=== PATIENT | male | born 1990 | race Caucasian/White ===

== ENCOUNTER 2017-08-14 13:00 | Emergency (ER) | payer SELFPAY ==
--- NOTE | 2017-08-14 13:38 | ER Document Report ---
HPI - HPI Patient complains to provider of: anitra chest wall pain Onset: Other - 2 months Onset/Duration: Persistent Pain Level: 4 Context: 26 yo male c/o bilateral chest wall pain for 2 months, worse with movement, and his infant son kicking the are. felt it yesterday and felt lump in right breast. Associated Symptoms: None Exacerbated by: Other - see above Relieved by: Denies - ROS ROS below otherwise negative: Yes Systems Reviewed and Negative: Yes All other systems reviewed and negative Past Medical History - General Information source: Patient - Social History Smoking Status: Never Smoker Frequency of alcohol use: None Drug Abuse: None Lives with: Family Family History: Reviewed & Not Pertinent - Medical History Medical History: Negative Surgical Hx: Negative Vertical Provider Document - CONSTITUTIONAL Agree With Documented VS: Yes Exam Limitations: No Limitations General Appearance: No Apparent Distress - INFECTION CONTROL TRAVEL OUTSIDE OF THE [place] IN LAST 30 DAYS: No - HEENT HEENT: Normocephalic - NECK Neck: Supple - RESPIRATORY Respiratory: Breath Sounds Normal, No Respiratory Distress Notes: tender right pectoral muscle, no breast mass. - CARDIOVASCULAR Cardiovascular: Regular Rate, Regular Rhythm - MUSCULOSKELETAL/EXTREMETIES Musculoskeletal/Extremeties: MAEW - NEURO Level of Consciousness: Awake - DERM Notes: no clavicular lymph nodes Course - Re-evaluation Re-evalutation: 08/14/17 14:48 Chest x-ray is negative I will refer the patient to a family practice provider for breast ultrasound and mammogram. - Vital Signs Vital signs: Temp Pulse Resp BP Pulse Ox 98.9 F 72 16 125/76 97 08/14/17 13:10 08/14/17 13:10 08/14/17 13:10 08/14/17 13:10 08/14/17 13:10 Discharge - Discharge Clinical Impression: right pectoral muscle tenderness Condition: Good Disposition: HOME, SELF-CARE Instructions: Anti-Inflammatory Medication ([facility]), Chest Wall Pain ([facility]), Family Physicians / Practices Additional Instructions: See family practice doctor for referral for a breast ultrasound and mammogram Return to the emergency room worsening of the symptoms Motrin for discomfort Prescriptions: Ibuprofen [Motrin 800 mg Tablet] 800 mg PO Q8HP PRN #30 tablet PRN Reason: Forms: Return to Work Referrals: [facility] NP [COMMUNITY BASED STAFF] - Follow up as needed
--- NOTE | 2017-08-14 14:32 | RADIOLOGY REPORT (SQ) ---
EXAM DESCRIPTION: CHEST 2 VIEWS COMPLETED DATE/TIME: 08/14/2017 2:12 pm REASON FOR STUDY: chest wall pain back pain COMPARISON: None. EXAM PARAMETERS: NUMBER OF VIEWS: two views TECHNIQUE: Digital Frontal and Lateral radiographic views of the chest acquired. RADIATION DOSE: NA LIMITATIONS: none FINDINGS: LUNGS AND PLEURA: No opacities, masses or pneumothorax. No pleural effusion. MEDIASTINUM AND HILAR STRUCTURES: No masses or contour abnormalities. HEART AND VASCULAR STRUCTURES: Heart normal size. No evidence for failure. BONES: No acute findings. HARDWARE: None in the chest. OTHER: No other significant finding. IMPRESSION: NO ACUTE RADIOGRAPHIC FINDING IN THE CHEST. TECHNICAL DOCUMENTATION: JOB ID: [id number] [employer]- All Rights Reserved Reading location - IP/workstation name: [email or web address]
[2017-08-14 15:12] VITALS: BP 124/78
== END 2017-08-14 15:10 | disposition home or self-care (01) ==
LOC: ER 13:00
DX: R07.89 Other chest pain (principal); M79.1 Myalgia
CPT/HCPCS: 71046; 99284

== ENCOUNTER 2017-10-13 20:01 | Emergency (ER) | payer SELFPAY ==
[2017-10-13 20:10] VITALS: BP 142/82
[2017-10-13] MEDS ORDERED: DEXAMETHASONE SOD PHOS INJ 10 MG/1 ML VIAL IM ONE (22:03)
--- NOTE | 2017-10-13 22:05 | ER Document Report ---
ED General - General Chief Complaint: Sore Throat Stated Complaint: SORE THROAT Time Seen by Provider: 10/13/17 21:35 TRAVEL OUTSIDE OF THE [place] IN LAST 30 DAYS: No - HPI Notes: 27-year-old male presents with sore throat. Proximal a week ago patient began having sore throat and then shortly after lost his voice. Got his voice back but now his throat is hurting again. Does not smoke. Just recently moved from [place]. He has had a dry nonproductive cough as well. No fever. Gradual onset, burning pain. Nonradiating. No other modifying factors, no other associated symptoms, no other provocative or palliative factors. - Related Data Allergies/Adverse Reactions: No Known Allergies Allergy (Verified 08/14/17 13:01) Past Medical History - Social History Smoking Status: Unknown if Ever Smoked Family History: Reviewed & Not Pertinent Patient has suicidal ideation: No Patient has homicidal ideation: No - Past Medical History Cardiac Medical History: Reports: None Renal/ Medical History: Denies: Hx Peritoneal Dialysis Review of Systems - Review of Systems Notes: Review of systems as in the history of present illness, otherwise negative x 10 systems. Physical Exam - Vital signs Vitals: Temp Pulse Resp BP Pulse Ox 98.6 F 68 18 142/82 H 96 10/13/17 20:08 10/13/17 20:08 10/13/17 20:08 10/13/17 20:08 10/13/17 20:08 - Notes Notes: General: Well developed . HEENT: Normocephalic, atraumatic. Pupils equal round reactive to light. No JVD. Moderate pharyngeal injection noted, no tonsillar purulence Chest: No trauma. Respiratory: Good air exchange, normal excursion. Cardiac: Regular rhythm. No murmurs or gallops. Abdomen: Soft, benign. Nondistended. Nontender. Back: No asymmetry or gross abnormality. Motor: Grossly normal power and tone. Neurologic: Alert, nonfocal. Cranial nerves II-12 are intact. Sensation intact. Vascular: Well perfused. Normal peripheral pulses. Skin: No petechiae or purpura. Course - Re-evaluation Re-evalutation: 10/13/17 22:33 Well-appearing male with the after mentioned symptoms. Likely viral in nature. No high-risk features, doubt streptococcal pharyngitis. Of note, rapid strep screen ordered by [facility] physician was negative. We will treat the patient symptomatically with a single dose of steroids, outpatient NSAIDs, outpatient follow-up. - Vital Signs Vital signs: Temp Pulse Resp BP Pulse Ox 98.6 F 68 18 142/82 H 96 10/13/17 20:08 10/13/17 20:08 10/13/17 20:08 10/13/17 20:08 10/13/17 20:08 Discharge - Discharge Clinical Impression: Pharyngitis Qualifiers: Pharyngitis/tonsillitis etiology: unspecified etiology Qualified Code(s): J02.9 - Acute pharyngitis, unspecified Condition: Good Disposition: HOME, SELF-CARE Instructions: Sore Throat ([facility]) Prescriptions: Naproxen 500 mg PO Q12 PRN #12 tablet PRN Reason:
== END 2017-10-13 22:14 | disposition home or self-care (01) ==
LOC: ER 20:01
DX: J02.9 Acute pharyngitis, unspecified (principal); R05 Cough
CPT/HCPCS: 99283; 96372; 87070; 87880; J1100